=== PATIENT | female | born 1965 | race Hispanic/Latino ===

== ENCOUNTER → 2023-07-28 | Outpatient (CLI) | payer OTHER | END | disposition home or self-care (01) | LOC: OIH 11:03 | PROVIDERS: ATTEND Internal Medicine Cardiovascular Disease | DX: Z13.6 Encounter for screening for cardiovascular disorders (principal); R93.1 Abnormal findings on diagnostic imaging of heart and coronary circulation | CPT/HCPCS: 75571 ==

== ENCOUNTER 2024-11-22 12:31 | Emergency (ER) | payer MEDICARE ==
[~2024-11-22] VITALS: Ht 160 cm; Wt 95.3 kg
--- NOTE | 2024-11-22 12:45 | ERN ---
ED Note History of Present Illness Stated Complaint: FALL Chief Complaint: Mechanical Fall Time Seen by MD: 12:40 Dictation: PATIENT IS A 58-YEAR-OLD FEMALE COMING IN TODAY WITH COMPLAINTS OF LEFT LATERAL MALLEOLAR PAIN SWELLING WITH INABILITY TO WEIGHT BEAR AFTER TWISTING HER ANKLE 1 HOUR PRIOR TO ARRIVAL. SHE STATES SHE WAS WALKING WHEN SHE TWISTED IT ON A ROCK IN HER ANKLE TWISTED. SHE SAID SHE FELL TO THE GROUND NO HIP PAIN NO PELVIC PAIN DID NOT HIT HER HEAD. NO BLOOD THINNERS NO LOC NO TRAUMA ALERT CRITERIA. SHE HAS NOT TAKEN ANYTHING PRIOR TO ARRIVAL FOR PAIN, DISTAL NEUROVASCULAR CMS INTACT LEFT LEG Allergies: Coded Allergies: No Known Drug Allergies (Unverified Allergy, Unknown, 11/22/24) Past Medical History Past Medical History: Arthritis, Diabetes-Type II, High Cholesterol, Other Additional Past Medical Hx: BACK PAIN Surgical History: Other Surgical History Other: left knee sx History: Not Applicable RN Note Reviewed/Agreed w/PFSH: Yes Review of System Dictation CONSTITUTIONAL: NEGATIVE EXCEPT FOR HPI HEAD/FACE: NEGATIVE EXCEPT FOR HPI EENT: NEGATIVE EXCEPT FOR HPI RESPIRATORY: NEGATIVE EXCEPT FOR HPI GASTROINTESTINAL/ABDOMINAL: NEGATIVE EXCEPT FOR HPI GENITOURINARY: NEGATIVE EXCEPT FOR HPI MUSCULOSKELETAL: NEGATIVE EXCEPT FOR HPI LEFT LATERAL ANKLE PAIN SWELLING DECREASED WEIGHT-BEARING INTEGUMENTARY: NEGATIVE EXCEPT FOR HPI NEUROLOGICAL/PSYCH: NEGATIVE EXCEPT FOR HPI HEMATOLOGIC/LYMPHATIC: NEGATIVE EXCEPT FOR HPI ALL SYSTEMS NEGATIVE, EXCEPT NOTED ABOVE. 13 POINT REVIEW OF SYSTEMS ASSESSED AND ALL NEGATIVE EXCEPT FOR ABOVE. Initial Vital Sign VS Vital Signs Date Time Temp Pulse Resp B/P (MAP) Pulse Ox O2 Delivery O2 Flow Rate FiO2 11/22/24 12:40 97.7 83 18 97/79 100 Room Air 0 11/22/24 12:44 21 Physical Exam Dictation VITAL SIGNS REVIEWED GENERAL APPEARANCE: ALERT, ORIENTED X 3, SEVERE ACUTE DISTRESS, WELL DEVELOPED, NOURISHED. HEAD AND FACE: NON-TRAUMATIC. EYES: PERRL, PINK CONJUNCTIVAS, EYELID NO TRAUMA, ANTERIOR CHAMBER WITH ARCUS SENILIS. EARS: PINNAS INTACT AND NO SIGNS OF TRAUMA OR ERYTHEMA EAR CANALS CLEAR AND NO DISCHARGE TM NO ERYTHEMA NOSE: NO DISCHARGE, NO BLEEDING. OROPHARYNX: MOUTH NORMAL, TONGUE PINK, PHARYNX CLEAR,NO ERYTHEMA, TONSILS NO EXUDATES, NO ABSCESSES NOTED, MUCOUS MEMBRANE MOIST NECK: SUPPLE, NON-TENDER, NO THYROMEGALY, NO MASSES, NO JVD, NO BRUITS BREAST:DEFERRED CHEST:NO TENDERNESS, NO CREPITUS, NO PARADOXICAL MOVEMENT, NO RETRACTIONS LUNGS:CLEAR, WELL-VENTILATED, SYMMETRIC, NO RALES, NO WHEEZING, NO RHONCHI, NO STRIDOR, GOOD BREATH SOUNDS BILATERALLY HEART: REGULAR RATE, REGULAR RHYTHM, NO MURMUR, NO GALLOPS VASCULAR: NO PERIPHERAL EDEMA, ABDOMEN: SOFT, POSITIVE BOWEL SOUNDS, NONDISTENDED, NO GUARDING, NONTENDER, NO REBOUND, NO MASSES NO HEPATOMEGALY, NO SPLENOMEGALY, NO CALDERON'S SIGN, NO HERNIAS. RECTAL: DEFERRED GENITAL: DEFERRED NEUROLOGICAL: NORMAL SPEECH, MOTOR FUNCTION INTACT, SENSORY FUNCTION INTACT MUSCULOSKELETAL: NECK NONTENDER, FULL RANGE OF MOTION, BACK NONTENDER, FULL RANGE OF MOTION, EXTREMITIES: LEFT LATERAL MALLEOLAR PAIN SWELLING WITH DECREASED RANGE OF MOTION SECONDARY TO PAIN. SKIN IS INTACT. NEUROVASCULAR CMS INTACT SKIN: COLOR PINK, DRY, NO TURGOR, NO RASH, NO LACERATIONS, NO ABRASIONS, NO CONTUSIONS. LYMPHATIC: DEFERRED Results (Laboratory/Radiology) Laboratory/Radiology LEFT ANKLE X-RAY DEMONSTRATES DEGENERATIVE CHANGES ONLY NO ACUTE FRACTURE Labs Reviewed?: Yes ED Course ED Course Orders Procedure Category Date Status Time Ankle Comp 3vws Lt RAD 11/22/24 Taken 12:42 Apply Ice Pack To: CPOE 11/22/24 Transmitted (Er) 12:42 Posterior Ankle Splint [email or web address] 11/22/24 In Process 12:42 Crutches W/Training CPOE 11/22/24 Transmitted (Er) 12:42 Acetaminophen With PHA 11/22/24 Complete Codeine (Tylenol-Code 13:00 Current Medications Medications (Trade) Dose Ordered Sig/Rogerio Route PRN Reason Start Time Stop Time Status Last Admin Dose Admin Acetaminophen/ Codeine Phosphate (TYLenol-coDEINE TAB) 2 tab ONCE ONCE PO 11/22/24 13:00 11/22/24 13:01 DC 11/22/24 12:56 Vital Signs Date Time Temp Pulse Resp B/P (MAP) Pulse Ox O2 Delivery O2 Flow Rate FiO2 11/22/24 12:44 97.7 83 18 97/79 100 Room Air* 0 21 11/22/24 12:40 97.7 83 18 97/79 100 Room Air 0 1315/POSTERIOR ANKLE SPLINT PLACED BY TECH, DISTAL NEUROVASCULAR CMS INTACT. Medical Decision Making MDM MEDICAL DECISION-MAKING BASED ON EMPIRIC TREATMENT FOR ACUTE ANKLE PAIN AND X- RAY. X-RAY NEGATIVE EXCEPT FOR DEGENERATIVE CHANGES SPLINT APPLIED WITH CRUTCHES PROVIDED PATIENT DISCHARGED HOME WITH FALL /ANKLE SPRAIN. REFERRED TO ORTHOPEDIC SURGERY. DX & DISP Disposition: Discharge Departure Impression: Primary Impression: Moderate left ankle sprain Additional Impression: Fall Condition: Stable Scripts Ibuprofen (Ibuprofen 800 mg Tab) 800 Mg Tab 800 MG PO Q8H PRN for fever or pain, #30 TAB 0 Refills Prov: KIKA MOLINA NP 11/22/24 Additional Instructions: FOLLOW-UP WITH PRIMARY CARE PROVIDER IN 1 TO 2 DAYS. TAKE MEDICATIONS DIRECTED HERE IN THE EMERGENCY ROOM. OKAY TO CONTINUE HOME MEDICATIONS UNLESS OTHERWISE DISCUSSED DURING YOUR VISIT IN THE EMERGENCY ROOM TODAY. RETURN TO YOUR NEAREST EMERGENCY ROOM IF SYMPTOMS WORSEN OR IF THERE IS NO IMPROVEMENT. CALL 911 IF YOU NEED IMMEDIATE ASSISTANCE. TAKE TYLENOL OR MOTRIN [id number] NEEDED AND IF NO CONTRAINDICATIONS ARE PRESENT. INCREASE ORAL HYDRATION. A WOUND CULTURE OR URINE CULTURE WAS ORDERED HERE IN THE EMERGENCY ROOM DEPARTMENT PLEASE FOLLOW-UP WITH PRIMARY CARE PROVIDER AND ADVISE THEM TO GET REPEAT PORTS FROM OUR FACILITY. IF YOU HAD ANY TISHA WRAP/SPLINTS THAT WERE APPLIED HERE, PLEASE DO NOT REMOVE THEM UNTIL YOU SEE YOUR PRIMARY CARE OR SPECIALTY. SPLINT/CRUTCHES/NO WEIGHT-BEARING UNTIL CLEARED BY ORTHOPEDIC SURGEON, CALL FOR AN APPOINTMENT TODAY OR TOMORROW. TAKE IBUPROFEN NEEDED FOR PAIN WITH FOOD. APPLY COOL COMPRESSES TO ANKLE THREE TO 4 TIMES A DAY AND KEEP ELEVATED MUCH POSSIBLE. Referrals: NURY NICOLE MD (PCP) ANGEL ATKINSON MD Time of Disposition: 13:17 I have reviewed the case, and I agree with, Diagnosis and Plan KIKA MOLINA NP Nov 22, 2024 12:45
[2024-11-22] MEDS ORDERED: IBUP-2077 PO (13:18)
[2024-11-22 13:49] VITALS: BP 102/76; PULSE 80; RESP 18; TEMP 97.7; O2SAT 100
--- NOTE | 2024-11-22 13:53 | HMCIMG ---
EXAM: CR left ankle, 3 View. CLINICAL HISTORY: LEFT LATERAL ANKLE PAIN SWELLING STATUS POST TRIP FALL COMPARISON: None provided. FINDINGS: Heterotopic ossification at the medial malleolus likely reflects a prior ligamentous injury. There is concern for small nondisplaced fracture of the distal tip of the fibula. There is associated soft tissue edema. The tibiotalar, subtalar, and visualized midfoot joints are maintained. Osteoarthritic changes are noted at the midfoot. Small plantar calcaneal spur and enthesophyte at the distal Achilles tendon insertion. IMPRESSION: 1. Possible nondisplaced fracture of the distal fibular tip with associated soft tissue edema. 2. No other acute findings. /[place]
== END 2024-11-22 13:59 | disposition home or self-care (01) ==
LOC: EDH 12:31
DX: S93.402A Sprain of unspecified ligament of left ankle, initial encounter (principal); E11.9 Type 2 diabetes mellitus without complications; E78.00 Pure hypercholesterolemia, unspecified; M19.90 Unspecified osteoarthritis, unspecified site; X50.1XXA Overexertion from prolonged static or awkward postures, initial encounter; Y93.89 Activity, other specified; Y92.89 Other specified places as the place of occurrence of the external cause; Y99.8 Other external cause status
CPT/HCPCS: 73610; 99283